=== PATIENT | male | born 2000 | race African-American/Black ===

== ENCOUNTER 2022-02-25 13:49 | Emergency (ER) | payer OTHER ==
[2022-02-25] MEDS ORDERED: Lidocaine 1% w/Epinephrine 1:100K 20 ML VIAL ONE (15:48)
== END 2022-02-25 16:40 | disposition home or self-care (01) ==
LOC: CSHERS 13:49
DX: K04.7 Periapical abscess without sinus (principal)
CPT/HCPCS: 41008

== ENCOUNTER 2022-04-30 21:31 | Emergency (ER) | payer OTHER | END 2022-04-30 23:15 | disposition home or self-care (01) | LOC: CSHERS 21:31 | DX: J02.0 Streptococcal pharyngitis (principal) | CPT/HCPCS: 87430; 99283 ==

== ENCOUNTER 2022-06-09 00:42 | Emergency (ER) | payer OTHER | END 2022-06-09 01:43 | disposition home or self-care (01) | LOC: CSHERS 00:42 | DX: S93.402A Sprain of unspecified ligament of left ankle, initial encounter (principal); X50.9XXA Other and unspecified overexertion or strenuous movements or postures, initial encounter; Y93.67 Activity, basketball ==

== ENCOUNTER 2023-06-14 20:31 | Emergency (ER) | payer OTHER ==
[2023-06-14] MEDS ORDERED: Ibuprofen 200 MG TAB ONE (22:15)
== END 2023-06-14 22:18 | disposition home or self-care (01) ==
LOC: CSHERS 20:31
DX: K02.9 Dental caries, unspecified (principal)
CPT/HCPCS: 99282

== ENCOUNTER 2023-10-24 20:40 | Emergency (ER) | payer SELFPAY | END 2023-10-24 22:32 | disposition left against medical advice (07) | LOC: CSHERS 20:40 | DX: Z53.21 Procedure and treatment not carried out due to patient leaving prior to being seen by health care provider (principal) ==

== ENCOUNTER 2023-12-25 16:20 | Emergency (ER) | payer SELFPAY ==
[2023-12-27 02:34] LABS: Chlam.trachomatis by PCR,Urine DETECTED (NotDetected); GC N.gonorrhoeae PCR,UrineVOID Not Detected (NotDetected)
== END 2023-12-25 16:55 | disposition home or self-care (01) ==
LOC: CSHERS 16:20
DX: Z20.2 Contact with and (suspected) exposure to infections with a predominantly sexual mode of transmission (principal)
CPT/HCPCS: 87491; 87591; 99283